=== PATIENT | male | born 1970 | race Hispanic/Latino ===

== ENCOUNTER 2017-03-30 11:55 | Emergency (ER) | payer SELFPAY ==
[~2017-03-30] VITALS: Ht 154.9 cm; Wt 90.9 kg
[2017-03-30 12:57] VITALS: BP 125/78
== END 2017-03-30 13:02 | disposition home or self-care (01) | DRG 605 ==
LOC: ED 11:55
PROC: 0HQDXZZ Repair Right Lower Arm Skin, External Approach (ICD-10-PCS; principal; 2017-03-30)
DX: S51.811A Laceration without foreign body of right forearm, initial encounter (principal); W45.8XXA Other foreign body or object entering through skin, initial encounter; Y92.009 Unspecified place in unspecified non-institutional (private) residence as the place of occurrence of the external cause

== ENCOUNTER 2017-04-06 09:40 | Emergency (ER) | payer SELFPAY ==
[~2017-04-06] VITALS: Ht 154.9 cm; Wt 95.0 kg
[2017-04-06 10:04] VITALS: BP 144/83
== END 2017-04-06 10:09 | disposition home or self-care (01) | DRG 950 ==
LOC: ED 09:40
DX: S51.811D Laceration without foreign body of right forearm, subsequent encounter (principal)

== ENCOUNTER 2017-04-09 09:57 | Emergency (ER) | payer SELFPAY ==
[~2017-04-09] VITALS: Ht 167.6 cm; Wt 90.0 kg
[2017-04-09 10:47] VITALS: BP 118/82
== END 2017-04-09 10:47 | disposition home or self-care (01) | DRG 950 ==
LOC: ED 09:57
DX: S51.811D Laceration without foreign body of right forearm, subsequent encounter (principal); X58.XXXD Exposure to other specified factors, subsequent encounter